=== PATIENT | female | born 1990 | race Two or more races ===

== ENCOUNTER 2018-01-11 14:24 | Outpatient (CLI) | payer OTHER ==
[~2018-01-11 14:24] MED LIST: CELEBREX100 MG PO; PRILOSEC10 MG PO; SEPTRA DS TABLE1 TAB PO; ZOVIRAX400 MG PO; ZOVIRAX5 GM TP
== END 2018-01-11 14:26 | disposition home or self-care (01) ==
LOC: LAB 14:24
DX: E16.1 Other hypoglycemia (principal); Z11.3 Encounter for screening for infections with a predominantly sexual mode of transmission; Z13.1 Encounter for screening for diabetes mellitus

== ENCOUNTER 2018-01-22 11:29 | Outpatient (CLI) | payer OTHER | END 2018-01-22 11:33 | disposition home or self-care (01) | LOC: LAB 11:29 | DX: N92.5 Other specified irregular menstruation (principal) ==

== ENCOUNTER 2018-05-26 15:56 | Emergency (ER) | payer OTHER ==
[~2018-05-26] VITALS: Ht 157.5 cm; Wt 77.1 kg
== END 2018-05-26 16:59 | disposition home or self-care (01) ==
LOC: ER 15:56
DX: S51.831A Puncture wound without foreign body of right forearm, initial encounter (principal); W46.0XXA Contact with hypodermic needle, initial encounter; Y93.89 Activity, other specified; Y92.69 Other specified industrial and construction area as the place of occurrence of the external cause; Y99.8 Other external cause status

== ENCOUNTER 2018-06-02 11:07 | Outpatient (CLI) | payer OTHER | END 2018-06-02 15:16 | disposition home or self-care (01) | LOC: RAD 11:07 | DX: S90.922A Unspecified superficial injury of left foot, initial encounter (principal) ==

== ENCOUNTER → 2018-10-20 | Outpatient (CLI) | payer OTHER | END | disposition home or self-care (01) | LOC: LAB 17:53 | DX: J11.1 Influenza due to unidentified influenza virus with other respiratory manifestations (principal); J11.89 Influenza due to unidentified influenza virus with other manifestations ==

== ENCOUNTER 2019-02-21 10:56 | Outpatient (CLI) | payer OTHER | END 2019-02-21 15:00 | disposition home or self-care (01) | LOC: LAB 10:56 | DX: E78.5 Hyperlipidemia, unspecified (principal); Z00.00 Encounter for general adult medical examination without abnormal findings; E55.9 Vitamin D deficiency, unspecified; R42 Dizziness and giddiness; Z11.3 Encounter for screening for infections with a predominantly sexual mode of transmission ==

== ENCOUNTER 2020-02-23 09:00 | Outpatient (CLI) | payer OTHER | END 2020-02-23 15:00 | disposition home or self-care (01) | LOC: PPH VACUNA 09:00 | DX: Z23 Encounter for immunization (principal) ==

== ENCOUNTER 2020-03-27 16:20 | Outpatient (CLI) | payer OTHER | END 2020-03-27 18:00 | disposition home or self-care (01) | LOC: LAB 16:20 | DX: Z32.02 Encounter for pregnancy test, result negative (principal); Z20.828 Contact with and (suspected) exposure to other viral communicable diseases ==

== ENCOUNTER 2020-12-11 17:49 | Outpatient (CLI) | payer OTHER ==
[~2020-12-11 17:49] MED LIST changes: +DICLOFENAC POTA50 MG PO; +NORFLEX100MG PO
== END 2020-12-11 18:00 | disposition home or self-care (01) ==
LOC: RAD 17:49
PROVIDERS: ATTEND Physical Medicine & Rehabilitation
DX: M54.2 Cervicalgia (principal)

== ENCOUNTER 2021-03-03 08:00 | Outpatient (CLI) | payer OTHER | END 2021-03-03 08:30 | disposition home or self-care (01) | LOC: PPH VACUNA 08:00 | PROVIDERS: ATTEND Emergency Medicine Pediatric Emergency Medicine | DX: Z23 Encounter for immunization (principal) ==

== ENCOUNTER 2021-10-05 18:46 | Emergency (ER) | payer OTHER ==
[~2021-10-05] VITALS: Ht 157.5 cm; Wt 71.2 kg
== END 2021-10-06 | disposition home or self-care (01) ==
LOC: ER 18:46
DX: J18.9 Pneumonia, unspecified organism (principal); Z20.822 Contact with and (suspected) exposure to COVID-19

== ENCOUNTER 2021-11-11 13:38 | Outpatient (CLI) | payer OTHER | END 2021-11-11 13:47 | disposition home or self-care (01) | LOC: LAB 13:38 | PROVIDERS: ATTEND Internal Medicine Geriatric Medicine | DX: Z20.822 Contact with and (suspected) exposure to COVID-19 (principal); B96.0 Mycoplasma pneumoniae [M. pneumoniae] as the cause of diseases classified elsewhere; J11.1 Influenza due to unidentified influenza virus with other respiratory manifestations ==

== ENCOUNTER 2021-11-13 08:49 | Outpatient (CLI) | payer OTHER | END 2021-11-13 09:40 | disposition home or self-care (01) | LOC: ASH CLINIC 08:49 | PROVIDERS: ATTEND General Practice | DX: Z23 Encounter for immunization (principal); U07.1 COVID-19 ==

== ENCOUNTER 2022-02-25 08:00 | Outpatient (CLI) | payer OTHER | END 2022-02-25 08:05 | disposition home or self-care (01) | LOC: PPH VACUNA 08:00 | PROVIDERS: ATTEND Emergency Medicine Pediatric Emergency Medicine | DX: Z23 Encounter for immunization (principal) ==

== ENCOUNTER 2022-07-14 14:18 | Emergency (ER) | payer OTHER ==
[~2022-07-14] VITALS: Ht 157.5 cm; Wt 68.0 kg
== END 2022-07-14 18:14 ==
LOC: ER 14:18
DX: T15.91XA Foreign body on external eye, part unspecified, right eye, initial encounter (principal); W45.8XXA Other foreign body or object entering through skin, initial encounter; Y93.89 Activity, other specified; Y92.230 Patient room in hospital as the place of occurrence of the external cause

== ENCOUNTER → 2022-07-20 | Emergency (ER) | payer OTHER ==
[~2022-07-20] VITALS: Ht 157.5 cm; Wt 68.0 kg
[~2022-07-20] MED LIST changes: +STRIBILD TABLE1 EACH PO
== END | disposition home or self-care (01) ==
LOC: ER 14:07
DX: R42 Dizziness and giddiness (principal)

== ENCOUNTER 2022-12-24 15:26 | Emergency (ER) | payer OTHER ==
[~2022-12-24] VITALS: Ht 157.5 cm; Wt 70.3 kg
[2022-12-24] MEDS ORDERED: ONDANSETRON ODT8 MG PO (18:36)
[2022-12-24] MEDS ORDERED: DOLOGEN CAPLET1 EACH PO (18:36)
[2022-12-24] MEDS ORDERED: PEPCID AC20 MG PO (18:36)
== END 2022-12-24 18:45 | disposition home or self-care (01) ==
LOC: ER 15:26
DX: B34.9 Viral infection, unspecified (principal); A08.8 Other specified intestinal infections; Z20.822 Contact with and (suspected) exposure to COVID-19

== ENCOUNTER 2023-03-12 11:21 | Outpatient (CLI) | payer OTHER ==
[~2023-03-12 11:21] MED LIST changes: +DOLOGEN CAPLET1 EACH PO; +ONDANSETRON ODT8 MG PO; +PEPCID AC20 MG PO
== END 2023-03-12 11:31 | disposition home or self-care (01) ==
LOC: PPH VACUNA 11:21
PROVIDERS: ATTEND Emergency Medicine Pediatric Emergency Medicine
DX: Z23 Encounter for immunization (principal)

== ENCOUNTER 2023-03-31 14:24 | Outpatient (CLI) | payer OTHER | END 2023-03-31 14:38 | disposition home or self-care (01) | LOC: SONOGRAMA 14:24 | PROVIDERS: ATTEND Surgery | DX: N60.11 Diffuse cystic mastopathy of right breast (principal); N60.12 Diffuse cystic mastopathy of left breast ==

== ENCOUNTER 2023-04-14 11:18 | Emergency (ER) | payer OTHER ==
[~2023-04-14] VITALS: Ht 157.5 cm; Wt 72.6 kg
[2023-04-14] MEDS ORDERED: GUMMI BEAR MUL1 EACH (12:50)
== END 2023-04-14 15:15 | disposition home or self-care (01) ==
LOC: ER 11:18
DX: T78.40XA Allergy, unspecified, initial encounter (principal); X58.XXXA Exposure to other specified factors, initial encounter; Y92.89 Other specified places as the place of occurrence of the external cause

== ENCOUNTER 2023-06-15 12:03 | Emergency (ER) | payer OTHER ==
[~2023-06-15] VITALS: Ht 157.5 cm; Wt 74.8 kg
[~2023-06-15 12:03] MED LIST changes: +GUMMI BEAR MUL1 EACH
[2023-06-15 14:41] LABS: PH,URINE 6.5 (5.0-8.0); URINE APPEARANCE Clear; URINE BILIRRUBIN Negative (NEGATIVE); URINE BLOOD Negative; URINE COLOR Yellow; URINE GLUCOSE Negative (NEGATIVE); URINE LEUKOCYTE Negative; URINE NITRATE Negative; URINE PROTEIN Negative (NEGATIVE); URINE UROBILINOGEN 0.2 E.U./dl
[2023-06-15 14:45] LABS: URINE BACTERIA 352.8 uL (0.0-1933); URINE EPITHELIAL CELLS 7.2 uL (0.0-38.8); URINE WBC 2.9 uL (0.0-23.2)
[2023-06-15 14:50] LABS: HEMATOCRIT 40.5 % (36.0-45.00); HEMOGLOBIN 13.9 g/dL (12.0-15.00); MEAN CELL VOLUME 83.1 fL (80.00-100.00); MEAN CORPUSCULAR HEMOGLOBIN 28.5 pg (27.00-32.0); MEAN CORPUSCULAR HGB CONC 34.3 g/dl (32.0-36.0); PLATELET COUNT 334 K/uL (150-450); RED BLOOD COUNT 4.87 M/uL (4.00-6.00); RED CELL DISTRIBUTION WIDTH 14.9 % (11.5-14.5)
[2023-06-15 15:07] LABS: URINE RBC 1.7 uL (0.0-20.8)
[2023-06-15] MEDS ORDERED: DICLOFENAC SODI50 MG PO (16:10)
[2023-06-15] MEDS ORDERED: TUSSIN DM LIQU118 ML PO (16:10)
== END 2023-06-15 16:32 | disposition home or self-care (01) ==
LOC: ER 12:04
PROVIDERS: Nurse Practitioner Family
DX: U07.1 COVID-19 (principal); N83.202 Unspecified ovarian cyst, left side; R10.2 Pelvic and perineal pain; R50.9 Fever, unspecified; E16.1 Other hypoglycemia

== ENCOUNTER 2024-05-26 16:44 | Outpatient (CLI) | payer OTHER ==
[~2024-05-26 16:44] MED LIST changes: +DICLOFENAC SODI50 MG PO; +TUSSIN DM LIQU118 ML PO
[2024-05-26 17:37] LABS: MYCOPLASMA PNEUMONIAE IGM REACTIVE (NO REACTIVE)
== END 2024-05-26 16:54 | disposition home or self-care (01) ==
LOC: LAB 16:44
PROVIDERS: ATTEND General Practice
DX: A49.3 Mycoplasma infection, unspecified site (principal); B34.9 Viral infection, unspecified; U07.1 COVID-19